=== PATIENT | female | born 1995 | race Caucasian/White ===

== ENCOUNTER 2022-04-08 13:14 | Emergency (ER) | payer OTHER ==
--- NOTE | 2022-04-08 14:15 | RAD REPORT ---
EXAM DESCRIPTION: RAD - Ankle Right 3 View - 04/08/2022 2:02 pm CLINICAL HISTORY: PAIN COMPARISON: No comparisons FINDINGS/IMPRESSION: Soft tissue swelling at the lateral malleolus. Possible avulsion fracture from the distal fibular tip. No malalignment.
--- NOTE | 2022-04-08 14:34 | ER ---
Nurse's Notes [facility] Name: Matt Ruby Age: 26 yrs Sex: Female : 1995 Arrival Date: 04/08/2022 Time: 13:17 Bed DIS1 Private MD: Diagnosis: Sprain of unspecified ligament of right ankle, initial encounter Presentation: 04/08 13:22 Chief complaint: Patient states: Patient fell yesterday, rolled right ankle and felt a bm7 pop, was unable to walk on it yesterday but can bear weight today, she states it is sore and swollen. Coronavirus screen: Vaccine status: Patient reports receiving the 2nd dose of the covid vaccine. At this time, the client does not indicate any symptoms associated with coronavirus-19. Ebola Screen: No symptoms or risks identified at this time. Initial Sepsis Screen: Does the patient meet any 2 criteria? No. Patient's initial sepsis screen is negative. Does the patient have a suspected source of infection? No. Patient's initial sepsis screen is negative. Risk Assessment: Do you want to hurt yourself or someone else? Patient reports no desire to harm self or others. Onset of symptoms was April 07, 2022. 13:22 Method Of Arrival: Ambulatory bm7 13:22 Acuity: ANGIE 4 bm7 Triage Assessment: 13:25 General: Appears in no apparent distress. Behavior is calm, cooperative, appropriate bm7 for age. Pain: Complains of pain in right ankle and lateral aspect of right foot. Musculoskeletal: Swelling present in right ankle and lateral aspect of right foot. 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 - Social history:: Smoking status: Patient denies any tobacco usage or history of. Screenin:41 Abuse screen: Denies threats or abuse. Denies injuries from another. Nutritional jl7 screening: No deficits noted. Tuberculosis screening: No symptoms or risk factors identified. Fall Risk None identified. Vital Signs: 13:22 BP 142 / 79; Pulse 113; Resp 22; Temp 97.58; Pulse Ox 99% ; Weight 95.25 kg; Height 5 bm7 ft. 5 in. (165.10 cm); Pain 5/10; 13:22 Body Mass Index 34.95 (95.25 kg, 165.10 cm) 7 ED Course: 13:17 Patient arrived in ED. mr 13:25 Triage completed. 7 13:25 Arm band placed on right wrist. Patient placed in waiting room, Patient notified of 7 wait time. 13:28 Jocelynn [facility]valho FNP [facility]. [facility] 13:28 Fran Fish MD is Attending Physician. [facility] 14:04 XRAY Ankle RIGHT 3 view In Process Unspecified. EDMN 14:13 Anisha Sharif, FAITH is Primary Nurse. 7 14:18 Cheng wrap to right ankle. [facility] 14:32 Willy Park MD is Referral Physician. [facility] 14:41 Patient has correct armband on for positive identification. jl7 14:41 No provider procedures requiring assistance completed. Patient did not have IV access jl7 during this emergency room visit. 14:41 3D boot applied to Walking boot to left foot. jl7 Administered Medications: No medications were administered Medication: 14:41 VIS not applicable for this client. 7 Outcome: 14:34 Discharge ordered by . [facility] 14:41 Discharged to home ambulatory. 7 14:41 Condition: stable 14:41 Discharge instructions given to patient, Instructed on discharge instructions, follow up and referral plans. Demonstrated understanding of instructions, follow-up care. 14:42 Patient left the ED. jl7 Signatures: Dispatcher [employer] EDMN Christina Dotson mr Anisha Sharif, RN RN [email or web address] Stefania Moore [facility] Taylor Brandon RN RN [email or web address] Jocelynn Carvalho FNP [place] [id number]
--- NOTE | 2022-04-08 14:34 | EDPHYS ---
Physician Documentation [facility] Name: Matt Ruby Age: 26 yrs Sex: Female : 1995 Arrival Date: 04/08/2022 Time: 13:17 Bed DIS1 Private MD: ED Physician Fran Fish HPI: 04/08 13:31 This 26 yrs old Female presents to ER via Ambulatory with complaints of Ankle Injury. [facility] 13:31 The patient presents with an injury. The complaints affect the right ankle. Onset: The 7 symptoms/episode began/occurred yesterday. Patient reports that she rolled her ankle while on the sidewalk yesterday. Reports that she is mild pain with ambulation and that she noticed that her ankle was swollen yesterday.. 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 - Social history:: Smoking status: Patient denies any tobacco usage or history of. ROS: 13:31 Constitutional: Negative for fever, chills, and weight loss, Eyes: Negative for injury, jh7 pain, redness, and discharge, Cardiovascular: Negative for chest pain, palpitations, and edema, Respiratory: Negative for shortness of breath, cough, wheezing, and pleuritic chest pain, Back: Negative for injury and pain, Skin: Negative for injury, rash, and discoloration, Neuro: Negative for headache, weakness, numbness, tingling, and seizure. 13:31 MS/extremity: Positive for pain, swelling, tenderness. 13:31 All other systems are negative. Exam: 13:31 Constitutional: This is a well developed, well nourished patient who is awake, alert, jh7 and in no acute distress. Cardiovascular: Regular rate and rhythm with a normal S1 and S2. No gallops, murmurs, or rubs. Normal PMI, no JVD. No pulse deficits. Respiratory: Lungs have equal breath sounds bilaterally, clear to auscultation and percussion. No rales, rhonchi or wheezes noted. No increased work of breathing, no retractions or nasal flaring. Back: No spinal tenderness. No costovertebral tenderness. Full range of motion. Skin: Warm, dry with normal turgor. Normal color with no rashes, no lesions, and no evidence of cellulitis. Neuro: Awake and alert, GCS 15, oriented to person, place, time, and situation. Motor strength 5/5 in all extremities. Sensory grossly intact. Normal gait. 13:31 Musculoskeletal/extremity: ROM: full active range of motion, Circulation is intact in all extremities. Sensation intact. R ankle: NVI, full range of motion, but pain with weightbearing. Mild tenderness to palpation over the lateral malleolus with mild swelling present.. Vital Signs: 13:22 BP 142 / 79; Pulse 113; Resp 22; Temp 97.58; Pulse Ox 99% ; Weight 95.25 kg; Height 5 bm7 ft. 5 in. (165.10 cm); Pain 5/10; 13:22 Body Mass Index 34.95 (95.25 kg, 165.10 cm) 7 MDM: 13:59 Patient medically screened. [facility] 14:35 Differential diagnosis: fracture, sprain. Data reviewed: vital signs, nurses notes, [facility] radiologic studies, plain films. Data interpreted: Pulse oximetry: is 99 %. Interpretation: normal. Counseling: I had a detailed discussion with the patient and/or guardian regarding: the historical points, exam findings, and any diagnostic results supporting the discharge/admit diagnosis, to return to the emergency department if symptoms worsen or persist or if there are any questions or concerns that arise at home. ED course: Informed patient of the possible fracture noted by radiology on the x-ray. Agreed to place in a tall boot and the patient stated that she would use the crutches she has at home. She was advised to follow-up with Ortho if pain persists.. 04/08 13:32 Order name: XRAY Ankle RIGHT 3 view; Complete Time: 14:31 jh7 04/08 14:31 Order name: Walking boot; Complete Time: 14:40 [facility] Administered Medications: No medications were administered Disposition: 15:45 Co-signature as Attending Physician, Fran Fish MD I agree with the assessment and kdr plan of care. Disposition Summary: 04/08/22 14:34 Discharge Ordered Location: Home [facility] Problem: new [facility] Symptoms: are unchanged [facility] Condition: Stable [facility] Diagnosis - Sprain of unspecified ligament of right ankle, initial encounter [facility] Followup: [facility] - With: Willy Park MD - When: 2 - 3 days - Reason: Recheck today's complaints Discharge Instructions: - Discharge Summary Sheet [facility] - Ankle Sprain [facility] - Walking Boot, Adult [facility] Forms: - Medication Reconciliation Form [facility] - Thank You Letter [facility] Signatures: Dispatcher [employer] Fran Coto MD MD kdr McCarthy, Brittany RN RN 7 Jocelynn Carvalho FNP SUB ACUTE CARE NURSE [facility]
== END 2022-04-08 14:42 | disposition home or self-care (01) ==
LOC: ER 13:14
DX: S93.401A Sprain of unspecified ligament of right ankle, initial encounter (principal)
CPT/HCPCS: 99283